=== PATIENT | female | born 1980 | race Caucasian/White ===

== ENCOUNTER 2022-04-11 21:01 | Emergency (ER) | payer OTHER ==
[~2022-04-11] VITALS: Ht 165.1 cm; Wt 83.9 kg
[2022-04-11 21:18] VITALS: BP_SYST 131
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
--- NOTE | 2022-04-11 22:50 | NUR ---
Pt was called to collect urine sample. Pt not found in lobby.
--- NOTE | 2022-04-11 23:00 | NUR ---
Pt called in waiting room. No response and patient not found.
--- NOTE | 2022-04-11 23:20 | NUR ---
Pt called in waiting room to collect sample. Patient not found in waiting room.
== END 2022-04-11 23:27 | disposition left against medical advice (07) ==
LOC: SED 21:01
DX: R51.9 Headache, unspecified (principal); Z53.21 Procedure and treatment not carried out due to patient leaving prior to being seen by health care provider

== ENCOUNTER 2022-04-13 13:54 | Emergency (ER) | payer OTHER ==
[~2022-04-13] VITALS: Ht 165.1 cm; Wt 86.2 kg
[2022-04-13 14:01] VITALS: BP_SYST 139
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
--- NOTE | 2022-04-13 14:15 | NUR ---
DR PALACIOS IN [facility] FOR EXAM
[2022-04-13] MEDS ORDERED: SOM350 PO (16:52)
[2022-04-13] MEDS ORDERED: IBUP-1969 PO (16:52)
[2022-04-13] MEDS ORDERED: IBUPROFEN 800 MG TABLET PO ONE (17:00)
--- NOTE | 2022-04-13 17:19 | NUR ---
Patient given written and verbal discharge instructions and verbalizes understanding. ER MD discussed with patient the results and treatment provided. Patient in stable condition. ID arm band removed. Rx of IBUPROFEN, SOMA given. Patient educated on pain management and to follow up with PMD. Pain Scale . Opportunity for questions provided and answered. Medication side effect fact sheet provided.
[2022-04-13 17:30] VITALS: BP_SYST 128
== END 2022-04-13 17:30 | disposition home or self-care (01) ==
LOC: SED 13:54
DX: S13.4XXA Sprain of ligaments of cervical spine, initial encounter (principal); S33.5XXA Sprain of ligaments of lumbar spine, initial encounter; Z88.6 Allergy status to analgesic agent; Z79.899 Other long term (current) drug therapy; V49.40XA Driver injured in collision with unspecified motor vehicles in traffic accident, initial encounter; Y93.89 Activity, other specified; Y92.89 Other specified places as the place of occurrence of the external cause; Y99.8 Other external cause status
CPT/HCPCS: 71045; 72040-TC; 72100-TC; 81025; 99284

== ENCOUNTER 2022-05-15 19:21 | Emergency (ER) | payer OTHER ==
[~2022-05-15] VITALS: Ht 172.7 cm; Wt 86.2 kg
[~2022-05-15 19:21] MED LIST: IBUP-1969 PO; SOM350 PO
[2022-05-15 19:45] VITALS: BP_SYST 127
[2022-05-15] MEDS ORDERED: predniSONE 20 MG TABLET PO ONE (20:45)
[2022-05-15] MEDS ORDERED: CYCLOBENZAPRINE HCL 10 MG TABLET (FLEXERIL) PO ONE (20:45)
[2022-05-15] MEDS ORDERED: CYCL10TA24 PO (20:56)
[2022-05-15] MEDS ORDERED: PRED20TA PO (20:56)
[2022-05-15] MEDS ORDERED: HYDR-3917 PO (20:56)
--- NOTE | 2022-05-15 21:07 | NUR ---
Patient to [facility] to [facility] for evaluation. Side rails up. Report given to BIPIN PENNY(REG).
--- NOTE | 2022-05-15 21:10 | NUR ---
ER Dr.De Goldstein at bedside examining patient.
--- NOTE | 2022-05-15 21:32 | NUR ---
Pt left after meds were given. Dr Goldstein gave verbal instructions to pt for discharge. Pt left without written instructions and wihtout prescriptions but did not have any other questions after Dr Bullard explained to pt and pt verbalized understanding.
[2022-05-15 21:35] VITALS: BP_SYST 128
== END 2022-05-15 21:35 | disposition home or self-care (01) ==
LOC: SED 19:21
DX: S39.012A Strain of muscle, fascia and tendon of lower back, initial encounter (principal); F17.210 Nicotine dependence, cigarettes, uncomplicated; Z88.6 Allergy status to analgesic agent; Z79.899 Other long term (current) drug therapy; V49.40XA Driver injured in collision with unspecified motor vehicles in traffic accident, initial encounter; Y93.89 Activity, other specified; Y92.89 Other specified places as the place of occurrence of the external cause; Y99.8 Other external cause status
CPT/HCPCS: 99283; 73560; J7512